=== PATIENT | female | born 1995 | race Caucasian/White ===

== ENCOUNTER 2017-01-01 02:28 | Emergency (ER) | payer SELFPAY ==
[~2017-01-01] VITALS: Ht 157.5 cm; Wt 75.5 kg
[2017-01-01 02:37] VITALS: BP 107/73; PULSE 83; RESP 18; TEMP 97.8; O2SAT 99
[2017-01-01] MEDS ORDERED: SODIUM CHLOR 0.9% 1000 ML INJ 1,000 ML IV ONE (03:00)
--- NOTE | 2017-01-01 03:00 | PD ---
HPI Chief Complaint: Abdominal Pain Time Seen by Provider: 02:54 Travel History International Travel<30 days: No Contact w/Intl Traveler<30days: No Traveled to known affect area: No History of Present Illness HPI 21-year-old female presents to the emergency department for complaint of lower abdominal pain 12 hours. Patient denies fever chills nausea vomiting dysuria frequency urgency vaginal bleeding or vaginal discharge. Last period was 3 weeks ago. Patient states she has very painful periods but is not menstruating at this time. Patient is sexually active and has not been using contraceptive. Patient is . Patient used ibuprofen 600 mg 2 PM but has not taken any further pain medication. Patient was given a Xanax unknown strength by her friend. Patient states she went to [facility] but the wait was too long after a three-hour she left and went home patient was able to fall asleep with her when she awakened pain had returned and it was very severe so presents now for further evaluation. Patient denies any history of similar type pain or same intensity of pain. Patient has never had any surgeries. Patient denies any injury. Patient's had no recent respiratory illness. Patient denies history of endometriosis or ovarian cysts. [facility] Past Medical History Narrative Medical Painful menses; no surgeries; nursing notes reviewed Social History Tobacco Use: Yes Allergies-Medications (Allergen,Severity, Reaction): Coded Allergies: No Known Allergies (Unverified , 01/01/17) Reported Meds & Prescriptions Reported Meds & Active Scripts Active Metrogel Vaginal Gel (Metronidazole Vaginal Gel) 0.75 % Gel 1 Appl VAGINAL HS Anaprox DS (Naproxen Sodium) 550 Mg Tab 550 Mg PO Q12HR PRN Review of Systems Except as stated in HPI: all other systems reviewed are Neg General / Constitutional: No: Fever, Chills HENT: No: Congestion Cardiovascular: No: Chest Pain or Discomfort Respiratory: No: Shortness of Breath Gastrointestinal: Positive: Abdominal Pain Genitourinary: Positive: Flank Pain, No: Dysuria (right-sided) Musculoskeletal: No: Myalgias Skin: No Rash Neurologic: No: Weakness Psychiatric: No: Anxiety Endocrine: No: Heat Intolerance Hematologic/Lymphatic: No: Easy Bruising Physical Exam Narrative GENERAL: Well-developed well-nourished female in no acute distress no respiratory distress SKIN: Warm and dry. HEAD: Normocephalic. EYES: No scleral icterus. No injection or drainage. NECK: Supple, trachea midline. No JVD or lymphadenopathy. CARDIOVASCULAR: Regular rate and rhythm without murmurs, gallops, or rubs. RESPIRATORY: Breath sounds equal bilaterally. No accessory muscle use. GASTROINTESTINAL: Abdomen soft, lower abdominal tenderness to palpation without guarding or rebound nondistended. MUSCULOSKELETAL: No cyanosis, or edema. BACK: Nontender without obvious deformity. No CVA tenderness. Data Data Last Documented VS Orders Complete Blood Count With Diff (01/01/17 02:54) Basic Metabolic Panel (Bmp) (01/01/17 02:54) Gc And Chlamydia Pcr (01/01/17 02:54) Wet Prep Profile (01/01/17 02:54) Urinalysis - C+S If Indicated (01/01/17 02:54) Iv Access Insert/Monitor (01/01/17 02:54) Ed Urine Pregnancytest Poc (01/01/17 02:54) Sodium Chlor 0.9% 1000 Ml Inj (Ns 1000 M (01/01/17 03:00) Ketorolac Inj (Toradol Inj) (01/01/17 04:15) Azithromycin (Zithromax) (01/01/17 04:30) Ceftriaxone Inj (Rocephin Inj) (01/01/17 04:30) Labs Laboratory Tests Test 01/01/17 01/01/17 01/01/17 03:05 03:15 03:30 White Blood Count 9.2 TH/MM3 Red Blood Count 4.70 MIL/MM3 Hemoglobin 14.3 GM/DL Hematocrit 42.4 % Mean Corpuscular Volume 90.1 FL Mean Corpuscular Hemoglobin 30.4 PG Mean Corpuscular Hemoglobin 33.8 % Concent Red Cell Distribution Width 12.8 % Platelet Count 262 TH/MM3 Mean Platelet Volume 7.9 FL Neutrophils (%) (Auto) 59.6 % Lymphocytes (%) (Auto) 31.9 % Monocytes (%) (Auto) 5.5 % Eosinophils (%) (Auto) 2.5 % Basophils (%) (Auto) 0.5 % Neutrophils # (Auto) 5.6 TH/MM3 Lymphocytes # (Auto) 2.9 TH/MM3 Monocytes # (Auto) 0.5 TH/MM3 Eosinophils # (Auto) 0.2 TH/MM3 Basophils # (Auto) 0.0 TH/MM3 CBC Comment DIFF FINAL Differential Comment Sodium Level 143 MEQ/L Potassium Level 3.6 MEQ/L Chloride Level 106 MEQ/L Carbon Dioxide Level 27.1 MEQ/L Anion Gap 10 MEQ/L Blood Urea Nitrogen 12 MG/DL Creatinine 0.85 MG/DL Estimat Glomerular Filtration 84 ML/MIN Rate Random Glucose 93 MG/DL Calcium Level 8.9 MG/DL Urine Color YELLOW Urine Turbidity SLIGHT Urine pH 5.5 Urine Specific [place] 1.026 Urine Protein NEG mg/dL Urine Glucose (UA) NEG mg/dL Urine Ketones NEG mg/dL Urine Occult Blood NEG Urine Nitrite NEG Urine Bilirubin NEG Urine Leukocyte Esterase NEG Urine WBC 3-5 /hpf Urine Squamous Epithelial > 8 /hpf Cells Urine Amorphous Sediment SMALL Urine Bacteria FEW /hpf Urine Mucus FEW /lpf Microscopic Urinalysis Comment CULT NOT INDICATED Clue Cells (Wet Prep) PRESENT Vaginal Trichomonas (Wet Prep) NONE SEEN Vaginal Yeast (Wet Prep) NONE SEEN Chlamydia trachomatis DNA NOT DETECTED (PCR) Neisseria gonorrhoeae DNA NOT DETECTED (PCR) MDM Medical Decision Making Medical Screen Exam Complete: Yes Emergency Medical Condition: Yes Medical Record Reviewed: Yes Interpretation(s) CBC & BMP Diagram 01/01/17 03:05 poc HCG: negative wet prep; clue cells Differential Diagnosis Abdominal pain, UTI, ruptured ovarian cyst, ovarian torsion, ectopic , renal colic, appendicitis, mittelschmerz Narrative Course IV access obtained specimens collected and sent for resulting Diagnosis Primary Impression: Pelvic pain Additional Impression: Mittelschmerz phenomenon Referrals: [facility] call for appointment [facility] call for appointment Patient Instructions: General Instructions Med/Other Pt SpecificInfo: Prescription(s) given Scripts Metronidazole Vaginal Gel (Metrogel Vaginal Gel)0.75 % Gel1 Appl VAGINAL HS #1 TUBE Ref 0 Prov:Margo Matthew MD 01/01/17 Naproxen Sodium DS (Anaprox DS)550 Mg [id number] Mg PO Q12HR PRN (PAIN GREATER THAN 5) #10 TAB Ref 0 Prov:Margo Matthew MD 01/01/17 Disposition: 01 DISCHARGE HOME Condition: Stable Margo Matthew MD January 01, 2017 03:00
[2017-01-01 03:40] LABS: AUTOMATED NEUTROPHIL # 5.6 TH/MM3 (1.8-7.7); BASOPHIL % 0.5 % (0.0-2.0); EOSINOPHIL # 0.2 TH/MM3 (0-0.4); EOSINOPHIL % 2.5 % (0.0-4.0); HEMATOCRIT 42.4 % (35.0-46.0); HEMO FLAGS DIFF FINAL; LYMPH % 31.9 % (9.0-44.0); LYMPHOCYTE # 2.9 TH/MM3 (1.0-4.8); MEAN CELL VOLUME 90.1 FL (80.0-100.0); MEAN CORPUSCULAR HEMOGLOBIN 30.4 PG (27.0-34.0); MEAN CORPUSCULAR HGB CONC 33.8 % (32.0-36.0); MONO % 5.5 % (0.0-8.0); NEUT % 59.6 % (16.0-70.0); PLATELET COUNT 262 TH/MM3 (150-450); RED CELL DISTRIBUTION WIDTH 12.8 % (11.6-17.2); WHITE BLOOD COUNT 9.2 TH/MM3 (4.0-11.0)
[2017-01-01 03:42] LABS: BLOOD, URINE NEG (NEG); GLUCOSE,URINE NEG (NEG); KETONE, URINE NEG (NEG); NITRITE,URINE NEG (NEG); PH, URINE 5.5 (5.0-8.5)
[2017-01-01 03:49] LABS: POTASSIUM 3.6 MEQ/L (3.5-5.1)
[2017-01-01 03:52] LABS: BICARBONATE 27.1 MEQ/L (21.0-32.0)
[2017-01-01 03:54] LABS: MUCUS URINE FEW /lpf (OCC); SQUAMOUS EPITHELIAL CELL URINE > 8 /hpf (0-5); URINE COLOR YELLOW (YELLW/STRAW)
[2017-01-01 03:56] LABS: BACTERIA, URINE FEW /hpf; COMMENT (UR) CULT NOT INDICATED; CULTURE IF INDICATED CULT NOT INDICATED
[2017-01-01] MEDS ORDERED: KETOROLAC TROMETHAMINE 30 MG/ML (IVP) VIAL IV PUSH ONE (04:15)
[2017-01-01 04:23] VITALS: BP 106/58; PULSE 74; RESP 16; O2SAT 100
[2017-01-01] MEDS ORDERED: AZITHROMYCIN 250 MG TAB PO ONE (04:30)
[2017-01-01] MEDS ORDERED: cefTRIAXone INJ 250 MG in SODIUM CHLORIDE 0.9% INJ 100 ML IV ONE (04:30)
[2017-01-01] MEDS ORDERED: METR0.7528 VAGINAL (05:34)
[2017-01-01] MEDS ORDERED: NAPR550 PO (05:34)
[2017-01-01 10:10] LABS: CHLAMYDIA PCR NOT DETECTED (NOT DETECT); NEISSERIA PCR NOT DETECTED (NOT DETECT)
== END 2017-01-01 06:06 | disposition home or self-care (01) ==
LOC: PHED 02:28
DX: R10.2 Pelvic and perineal pain (principal); N94.0 Mittelschmerz; N94.6 Dysmenorrhea, unspecified; Z72.0 Tobacco use
CPT/HCPCS: 80048; 81001; 84703; 85025; 87210; 87491; 87591; 96361; 96365; 96375; 99284; J0696; J1885; J7030